=== PATIENT | female | born 1970 | race Caucasian/White ===

== ENCOUNTER 2016-04-23 08:39 | Outpatient (CLI) | payer MEDICARE, OTHER ==
[2016-04-23 09:18] LABS: BASOPHILS % 0.7 (0.0-1.5); EOSINOPHILS % 0.3 % (0.0-6.8); LYMPHOCYTES # 1.1 # k/uL (0.6-4.0); MEAN CORPUSCULAR HEMOGLOBIN 31.7 pg (28.0-34.0); MONOCYTES # 0.2 # k/uL (0.0-0.9); MONOCYTES % 7.5 % (0.0-11.0); NEUTROPHILS # 1.8 # k/uL (1.4-7.7)
[2016-04-23 09:33] LABS: eGFR (African) > 60; eGFR (Non-African) > 60
== END 2016-04-23 08:40 ==
LOC: LAB 08:39
PROVIDERS: ATTEND Nurse Practitioner Family
DX: Z79.899 Other long term (current) drug therapy (principal); E55.9 Vitamin D deficiency, unspecified; F31.9 Bipolar disorder, unspecified
CPT/HCPCS: 36415; 80053; 80061; 82306; 82525; 84443; 84484; 85025

== ENCOUNTER 2016-05-16 08:37 | Outpatient (CLI) | payer MEDICARE, OTHER | END 2016-05-16 08:40 | LOC: LAB 08:37 | PROVIDERS: ATTEND Nurse Practitioner Psychiatric/Mental Health | DX: D72.819 Decreased white blood cell count, unspecified (principal) | CPT/HCPCS: 36415; 82607; 82746 ==

== ENCOUNTER 2016-07-16 09:03 | Outpatient (CLI) | payer MEDICARE, OTHER | END 2016-07-16 09:05 | LOC: LAB 09:03 | PROVIDERS: ATTEND Nurse Practitioner Psychiatric/Mental Health | DX: Z51.81 Encounter for therapeutic drug level monitoring (principal); Z79.899 Other long term (current) drug therapy | CPT/HCPCS: 36415; 80164; 84439 ==

== ENCOUNTER 2017-01-21 08:53 | Outpatient (CLI) | payer MEDICARE, OTHER | END 2017-01-21 08:54 | LOC: LAB 08:53 | PROVIDERS: ATTEND Nurse Practitioner Psychiatric/Mental Health | DX: Z51.81 Encounter for therapeutic drug level monitoring (principal) | CPT/HCPCS: 36415; 80164 ==

== ENCOUNTER 2017-04-17 10:20 | Outpatient (CLI) | payer MEDICARE, OTHER ==
[2017-04-17 12:06] LABS: BASOPHILS % 0.3 (0.0-1.5); EOSINOPHILS % 0.1 % (0.0-6.8); MEAN CORPUSCULAR HEMOGLOBIN 32.3 pg (28.0-34.0); MEAN CORPUSCULAR VOLUME 98.8 fl (80.0-100.0); MONOCYTES % 4.7 % (0.0-11.0); NEUTROPHILS # 4.6 # k/uL (1.4-7.7)
[2017-04-17 12:13] LABS: eGFR (African) > 60; eGFR (Non-African) > 60
== END 2017-04-17 10:22 ==
LOC: LAB 10:20
PROVIDERS: ATTEND Nurse Practitioner Psychiatric/Mental Health
DX: Z79.899 Other long term (current) drug therapy (principal)
CPT/HCPCS: 36415; 80053; 80061; 80164; 84439; 84443; 85025

== ENCOUNTER 2017-10-21 08:10 | Outpatient (CLI) | payer MEDICARE, OTHER | END 2017-10-21 13:28 | LOC: LAB 08:10 | PROVIDERS: ATTEND Family Medicine | DX: Z51.81 Encounter for therapeutic drug level monitoring (principal); Z79.899 Other long term (current) drug therapy | CPT/HCPCS: 36415; 80164 ==

== ENCOUNTER 2018-04-23 08:26 | Outpatient (CLI) | payer MEDICARE, OTHER ==
[2018-04-23 09:31] LABS: eGFR (Non-African) > 60
[2018-04-23 09:32] LABS: BASOPHILS % 0.4 (0.0-1.5); EOSINOPHILS % 0.7 % (0.0-6.8); MEAN CORPUSCULAR HEMOGLOBIN 31.8 pg (28.0-34.0); NEUTROPHILS # 2.2 # k/uL (1.4-7.7)
== END 2018-04-23 08:45 ==
LOC: LAB 08:26
PROVIDERS: ATTEND Psychiatry & Neurology Psychiatry
DX: Z79.899 Other long term (current) drug therapy (principal); Z51.81 Encounter for therapeutic drug level monitoring
CPT/HCPCS: 36415; 80053; 80061; 80164; 84439; 84443; 85025